=== PATIENT | female | born 1985 | race Hispanic/Latino ===

== ENCOUNTER 2021-12-09 20:48 | Inpatient (IN) | payer MEDICAID ==
[~2021-12-09] VITALS: Ht 157.5 cm; Wt 88.0 kg
[2021-12-09] MEDS ORDERED: CEFAZOLIN SODIUM 1 GM VIAL IVP PRN (21:30)
[2021-12-09 22:40] LABS: MEAN CORPUSCULAR HEMOGLOBIN 28.4 pg (27.0-33.0); MEAN CORPUSCULAR HGB CONC 33.2 g/dL (32.0-36.0); MEAN CORPUSCULAR VOLUME 85.4 fL (79-99); RED BLOOD CELL COUNT(AUTO) 3.63 MIL/uL (4.00-5.50); RED CELL DISTRIBUTION WIDTH 14.6 % (11.0-15.5); WHITE BLOOD COUNT (AUTO) 11.3 K/uL (4.8-10.8)
[2021-12-09 22:55] LABS: INR 0.93 (0.85-1.15); PROTHROMBIN TIME 9.8 SEC (9.6-11.6)
[2021-12-09 22:56] LABS: PARTIAL THROMBOPLASTIN TIME 26.8 SEC (26.3-35.5)
[2021-12-09 22:58] LABS: CREATININE 0.8 mg/dL (0.5-1.5); POTASSIUM 3.7 mmol/L (3.5-5.1)
[2021-12-09 23:03] LABS: ALBUMIN 2.4 g/dL (3.5-5.0); TOTAL PROTEIN, SERUM 7.1 g/dL (6.0-8.3); URIC ACID 5.2 mg/dL (2.6-7.2)
[2021-12-09] MEDS: LACTATED RINGERS 1000ML 1,000 ML IV SCH (23:05)
[2021-12-09 23:37] VITALS: BP 143/70
[2021-12-09 23:43] LABS: APPEARANCE,URINE CLOUDY (CLEAR); BILIRUBIN,URINE NEGATIVE (NEGATIVE); COLOR,URINE YELLOW (YELLOW); GLUCOSE, URINE (UA) NEGATIVE (NEGATIVE); KETONES,URINE NEGATIVE (NEGATIVE); LEUKOCYTE ESTERASE ,URINE 500 Leu/uL (NEGATIVE); NITRATE,URINE NEGATIVE (NEGATIVE); OCCULT BLOOD,URINE LARGE (NEGATIVE); PROTEIN,URINE 50 mg/dL (NEGATIVE); UROBILINOGEN,URINE 0.2 mg/dL (0.2-1.0)
[2021-12-09 23:46] LABS: BACTERIA,URINE FEW /HPF (None Seen); MUCUS,URINE RARE LPF (None Seen); SQUAMOUS EPITHELIAL CELL,UR MANY /HPF (0-2); WBC,URINE 26-50 /HPF (0-1)
[2021-12-10] MEDS: LACTATED RINGERS 1000ML 1,000 ML IV SCH (05:17)
[2021-12-10] MEDS ORDERED: MORPHINE PF 100MG/10ML AMP IV ONE (06:40)
[2021-12-10] MEDS ORDERED: EPHEDRINE SULFATE 50 MG/ML AMPULE ONE (06:58)
[2021-12-10] MEDS ORDERED: ONDANSETRON 4MG INJ ONE (06:58)
[2021-12-10] MEDS ORDERED: OXYTOCIN 10 USP UNITS/ML ONE (07:09)
[2021-12-10] MEDS ORDERED: METHYLERGONOVINE MALEATE 0.2 MG/1 ML ML ONE (07:15)
[2021-12-10] MEDS ORDERED: OXYTOCIN-LR 20 UNITS/1000 ML 1,000 ML IV PRN (08:30)
[2021-12-10] MEDS ORDERED: MEPERIDINE-PF 75 MG/ML SYG IM PRN (08:30)
[2021-12-10] MEDS ORDERED: DiphenhydrAMINE HCL 50 MG/ML VIAL IVP PRN (08:30)
[2021-12-10] MEDS ORDERED: EPHEDRINE SULFATE 50 MG/ML AMPULE IVP PRN (08:30)
[2021-12-10] MEDS ORDERED: ONDANSETRON 4MG INJ IVP PRN (08:30)
[2021-12-10] MEDS ORDERED: 0.9%NACL 10ML VIAL IVP PRN (08:30)
[2021-12-10] MEDS ORDERED: PROMETHAZINE HCL 25 MG/ML 1ML AMPULE IM PRN (08:30)
[2021-12-10] MEDS ORDERED: NALOXONE HCL 0.4 MG/1 ML ML IVP PRN (08:30)
[2021-12-10 10:55] VITALS: BP 157/76
[2021-12-10] MEDS ORDERED: PREN1TAB80 PO (11:13)
[2021-12-10] MEDS: ACETAMINOPHEN WITH CODEINE 1 TAB TAB PO PRN ×2 (12:51→19:33)
[2021-12-10] MEDS: CEFAZOLIN SODIUM 1 GM VIAL IVP SCH ×3 (15:23→23:14)
[2021-12-10] MEDS: DEXTROSE 5 %-0.45 % NACL 1,000 ML IV PRN ×2 (15:25→22:25)
[2021-12-10 16:47] VITALS: BP 120/79
[2021-12-10 19:45] VITALS: BP 124/74
[2021-12-10 22:30] VITALS: BP 108/63
[2021-12-11] MEDS ORDERED: LANOLIN 30GM OINTMENT TP PRN (02:00)
[2021-12-11] MEDS ORDERED: BISACODYL 10 MG SUPP.RECT RC PRN (02:00)
[2021-12-11] MEDS ORDERED: HYDROCODONE/ACETAMINOPHEN 5/325 MG TAB PO PRN (02:00)
[2021-12-11] MEDS ORDERED: ACETAMINOPHEN 500 MG TABLET PO PRN (02:00)
[2021-12-11 02:33] VITALS: BP 120/68
[2021-12-11] MEDS: ACETAMINOPHEN WITH CODEINE 1 TAB TAB PO PRN (05:59)
[2021-12-11] MEDS: DEXTROSE 5 %-0.45 % NACL 1,000 ML IV PRN (06:03)
[2021-12-11 06:39] LABS: HEMATOCRIT 24.8 % (36-48); MEAN CORPUSCULAR HEMOGLOBIN 28.9 pg (27.0-33.0); MEAN CORPUSCULAR HGB CONC 33.5 g/dL (32.0-36.0); MEAN CORPUSCULAR VOLUME 86.4 fL (79-99); RED BLOOD CELL COUNT(AUTO) 2.87 MIL/uL (4.00-5.50); RED CELL DISTRIBUTION WIDTH 14.6 % (11.0-15.5); WHITE BLOOD COUNT (AUTO) 11.5 K/uL (4.8-10.8)
[2021-12-11 06:49] LABS: INR 0.93 (0.85-1.15); PROTHROMBIN TIME 9.9 SEC (9.6-11.6)
[2021-12-11 06:50] LABS: PARTIAL THROMBOPLASTIN TIME 29.6 SEC (26.3-35.5)
[2021-12-11 06:58] LABS: ALBUMIN 1.8 g/dL (3.5-5.0); CREATININE 0.8 mg/dL (0.5-1.5); POTASSIUM 3.8 mmol/L (3.5-5.1); TOTAL PROTEIN, SERUM 5.8 g/dL (6.0-8.3); URIC ACID 5.4 mg/dL (2.6-7.2)
[2021-12-11] MEDS ORDERED: DIPH,PERTUSS(ACELL),TET VAC/PF 0.5 ML VIAL IM SCH (07:00)
[2021-12-11 07:11] VITALS: BP 126/78
[2021-12-11] MEDS: SIMETHICONE 80 MG TAB.CHEW PO PRN ×4 (09:02→21:22)
[2021-12-11] MEDS: DOCUSATE SODIUM 100 MG CAP PO SCH ×2 (09:03→21:22)
[2021-12-11] MEDS: IBUPROFEN 800 MG TAB PO SCH ×2 (09:07→16:30)
[2021-12-11 11:41] VITALS: BP 123/77
[2021-12-11] MEDS: IBUPROFEN 600 MG TABLET PO PRN ×2 (14:42→21:24)
[2021-12-11 16:09] VITALS: BP 137/77
[2021-12-11 19:56] VITALS: BP 132/75
[2021-12-11 23:26] VITALS: BP 127/77
[2021-12-12 03:35] VITALS: BP 131/80
[2021-12-12] MEDS: IBUPROFEN 600 MG TABLET PO PRN (06:22)
[2021-12-12 08:25] VITALS: BP 149/84
[2021-12-12] MEDS: SIMETHICONE 80 MG TAB.CHEW PO PRN (08:28)
[2021-12-12] MEDS: DOCUSATE SODIUM 100 MG CAP PO SCH (08:28)
[2021-12-12 11:25] VITALS: BP 135/72
== END 2021-12-12 12:25 | disposition home or self-care (01) | DRG 539 ==
LOC: LDH 20:48 → WSH 12-10 10:50
PROVIDERS: ADMIT Obstetrics & Gynecology; ATTEND Obstetrics & Gynecology
PROC: 0UB70ZZ Excision of Bilateral Fallopian Tubes, Open Approach (ICD-10-PCS; 2021-12-10)
PROC: 10D00Z1 Extraction of Products of Conception, Low, Open Approach (ICD-10-PCS; principal; 2021-12-10 07:00)
DX: O34.211 Maternal care for low transverse scar from previous cesarean delivery (principal); O14.04 Mild to moderate pre-eclampsia, complicating childbirth; Z20.822 Contact with and (suspected) exposure to COVID-19; Z3A.36 36 weeks gestation of pregnancy; Z30.2 Encounter for sterilization; Z37.0 Single live birth
CPT/HCPCS: 36415; 80053; 81001; 84550; 85027; 85384; 85610; 85730; 86592; 86701; 86850; 86900; 86901; 87088; 87340; 87390; 87635; 90715; G0378; J0690; J2210; J2274; J2405; J2590; J3490; J7120